=== PATIENT | male | born 1940 | race Caucasian/White ===

== ENCOUNTER 2020-09-20 21:33 | Inpatient (IN) | payer MEDICARE, OTHER ==
[~2020-09-20] VITALS: Ht 177.8 cm; Wt 79.4 kg
[~2020-09-20 21:33] MED LIST: ANTIVERT25 MG PO; ASPIRIN EC325 MG PO; BENADRYL25 MG; FOLBIC RF TABL1 EACH PO; GARLIC2000 MG PO; LEVOTHYROXINE50 MCG; LIPITOR10 MG PO; LOVASTATIN40 MG; NEXIUM20 MG PO
[2020-09-20] MEDS ORDERED: OMEPRAZOLE20 MG PO (21:56)
[2020-09-20] MEDS ORDERED: CILOSTAZOL100 MG PO (21:56)
--- NOTE | 2020-09-21 03:30 | NUR ---
IN TO GET ADMISSION VITALS, CHUX PLACED, ORAL SWABS ON BEDSIDE TABLE, NO FURTHER NEEDS AT THIS TIME
--- NOTE | 2020-09-21 04:00 | NUR ---
ASSESSMENT COMPLETED. GCS 15, A&O X4. PT STEADY ON FEET, SBA FOR TUBES. NG TUBE ON GRAVITY UNTIL PLACEMENT CONFIRMED. LUNGS CLEAR. HEART TONE HAS MURMUR. ABD SOFT, TENDER, PT STATES NORMAL, BOWEL TONES ACTIVE. PT HAS A UROSTOMY BAG ON LEFT ABDOMEN THAT HE EMPTIES HIMSELF. OUTPUT IS YELLOW AND CLEAR. PT DOES NOT USE HIS URETHRA FOR URINATION DUE TO UROSTOMY BAG PLACEMENT.CMS INTACT. IV WNL, CDI, FLUSHED WELL. IV FLUIDS INFUSING PER ORDER. EDUCATION PROVIDED CONCERNING SAFETY, CALL LIGHT, HOB ELEVATION DUE TO NG TUBE, IV AND NG LINES AND AMBULATION. NO OTHER NEEDS AT THIS TIME. CALL LIGHT IN REACH.
--- NOTE | 2020-09-21 05:23 | NUR ---
RECEIVED RESULTS OF NG TUBE PLACEMENT XRAY. ADVANCED TUBE 16CM. XRAY NOTIFIED FOR A 2ND IMAGE TO CONFIRM NEW PLACEMENT.
--- NOTE | 2020-09-21 06:25 | NUR ---
VS AND I&O COMPLETED. PT DENIES NAUSEA AND PAIN. NG PLACED ON LOW INTERMITENT SUCTION. NO OTHER NEEDS AT THIS TIME. CALL LIGHT IN REACH.
--- NOTE | 2020-09-21 07:59 | NUR ---
PT WAS RESTING SOUNDLY AT SHIFT EXCHANGE LEFT UNDISTURBED. AWAKENS NOW TO VOICE DENIES ABDOMINAL PAIN BUT REPORTS THROAT IRRITATION DUE TO NG TUBE.
--- NOTE | 2020-09-21 09:04 | NUR ---
DR DIAS IN TO SEE THIS PT DISCUSSES POSSIBLE DIAGNOSTICS AND PLAN GOING FORWARD, ALL QUESTIONS ANSWERED
--- NOTE | 2020-09-21 10:31 | NUR ---
SBA PATIENT UP TO BATHROOM, NG IN PLACE. VITALS AND I&OS CHARTED, WARM BLANKET PROVIDED. NO OTHER NEEDS AT THIS TIME
--- NOTE | 2020-09-21 11:39 | CONS ---
[facility] [address] [place], [place] [address] Signed DATE OF CONSULTATION: 09/21/2020 CHIEF COMPLAINT: Nausea and vomiting for three days. HISTORY OF PRESENT ILLNESS: Tiny is a 80-year-old gentleman who originally developed a bladder tumor. He had transurethral resection of the bladder tumor with Dr. Trejo here in [place], [place]. He went through this along with his chemotherapy. 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 That caused atrophy of the right kidney. He later had his right kidney taken out through a right abdominal wall incision around 1999 up in [place], [place]. That urologist has since gone back to [place]. He now follows along with Dr. Maurice Rutledge. From all the chemo and radiation, his bladder got to where it would not stretch when he was going the bathroom all the time. He then went for a periumbilical lower midline incision in [address] Rutledge and had his prostate and bladder removed in the left lower quadrant, the ileal conduit created. He said he has done very well with the ileal conduit. He says once in a while the anastomosis of the ileum acts up and he gets to where he has abdominal distention with nausea and vomiting. He realized over the last three days that he was in this situation and would not resolve, he came to emergency room for evaluation. In the emergency room, he is not systemically ill or toxic. His white count was little elevated and the rest of his labs were fine. He ended up with a CT scan of abdomen and pelvis and of course, he has mildly distended small bowel down to that staple line and seems to be decompressed beyond the staple line in that ileum. It is near his ileal conduit in the left lower quadrant. Also, he may have some level of pulmonary cystoceles or pneumatoceles and/or some COPD on the CT scan. He may also have a right hydrocele. I have been asked to admit him as a general surgeon on-call. We had planned to place an NG tube. In the meantime, he had vomited quite a bit out in the parking lot and once he got down to our med/surg floor, he had an enormous amount of diarrhea and bowel movement and said he felt much better. They then placed the NG tube and he has had almost no clear gastric fluid out of it overnight. He said he feels much better. PAST MEDICAL HISTORY: 1. Possible ulcerative colitis diagnosed around age 76 [address] Green at the [facility], small hiatal hernia with acid reflux. 2. Bladder cancer. 3. Hypothyroidism. 4. Hemorrhoids. 5. Diverticulosis. 6. Peripheral arterial disease. 7. Recurrent resolving small-bowel obstructions. PAST SURGICAL HISTORY: Electronically Signed By: ETHAN URIBE MD 09/21/20 1139 PATIENT NAME: TINY MINOR CONSULTATION DATE OF : 44 REPORT #: [id number] PHYSICIAN: ETHAN URIBE MD PCP: ANG QUAN MD REPORT IS CONFIDENTIAL AND NOT TO BE RELEASED WITHOUT AUTHORIZATION [facility] [address] [place], [place] [address] Signed Transurethral resection of his bladder tumor with Dr. Trejo in [place], [place], followed by chemotherapy and radiation therapy. He then had a right nephrectomy in [place] around 1999 and then in 2005, Dr. Rutledge did his prostatectomy and cystectomy with a left lower quadrant ileal conduit. He also talked about his left mastoid surgery. He mentioned upper and lower endoscopy with Dr. Green at age 76 at the [facility]. He was told he had a hiatal hernia along with some diverticulosis and hemorrhoids. He later found out from his primary care provider, there was concern for ulcerative colitis. He said the medicine was too expensive, so he never took it. He was having a lot of diarrhea, so he started taking Benefiber and that markedly improved. He went back a year or two later with Dr. De Paz and had another colonoscopy and again diverticulosis with some hemorrhoids, but no evidence of any ulcerative colitis. SOCIAL HISTORY: He quit smoking. He does not drink. He is to [place] at [phone]. He has 2 children and [address] Ang Quan is his primary care provider, Dr. Maurice Rutledge is his urologist, although he is connected to the [facility]. He does prefer the [facility] in [place], [place]. He still drives. He is retired from here in [place], [place]. FAMILY HISTORY: His mother at age 90. Sister at age 79 from her colon cancer. REVIEW OF SYSTEMS: He had 10 systems reviewed and he is actually a very good historian and gave me all the detail in the above. ALLERGIES: Sulfa. MEDICATIONS: Levothyroxine, aspirin, Lipitor, Prilosec, Cilostazol and Benefiber. PHYSICAL EXAMINATION: VITAL SIGNS: Blood pressure is 144/75, heart rate 78, respirations 16, temperature is 97.5. He is 98% on room air. He is 5 feet 10 inches and 78 kg. GENERAL: Tiny is a 80-year-old gentleman lying supine in his hospital bed. He is alert, awake and interactive. He is an excellent historian. He has just very minimal 20 mL or so of clear gastric fluid in the canister with the NG tube in place. LUNGS: Clear to auscultation bilaterally. HEART: Regular rate and rhythm without murmurs. ABDOMEN: Mildly protuberant at his baseline according to him, it is quite soft, and nontender. There is no tympany. There is no dullness to percussion. He has an ileal conduit with his ostomy bag in the left lower quadrant. Electronically Signed By: ETHAN URIBE MD 09/21/20 1139 PATIENT NAME: TINY MINOR CONSULTATION DATE OF : 44 REPORT #: [id number] PHYSICIAN: ETHAN URIBE MD PCP: ANG QUAN MD REPORT IS CONFIDENTIAL AND NOT TO BE RELEASED WITHOUT AUTHORIZATION [facility] [address] [place], [place] [address] Signed RECTAL: Not performed. LABORATORY DATA: His white blood count is 13.4, hemoglobin 15, neutrophils 75, his BUN 16, creatinine 1.48. His COVID was negative. His liver function tests are negative. His albumin is 4.9. RADIOGRAPHIC STUDIES: Chest x-ray shows that the NG tube is now in the stomach. No other major issues on the chest x-ray. A CT scan of the abdomen and pelvis is reviewed and he probably has bilateral lower pulmonary cystoceles versus pneumatoceles or COPD. He has mildly dilated small bowel down to the staple line in the left lower quadrant and then it seems to be decompressed. He may have right hydrocele as well. ASSESSMENT/PLAN: Tiny is a 80-year-old gentleman who presents with what appears to be a mild partial small bowel obstruction that is probably now resolved. I explained to Tiny I think we will wait today on IV fluids and with his NG tube in place and we will look for a small bowel follow-through probably tomorrow morning and if it is negative, we will be able to discharge him afterwards. He said he is supposed to follow up with Dr. Rutledge tomorrow appointment and he was wondering about followup colonoscopy because of this presumed diagnosis of ulcerative colitis plus his sister had of colon cancer at age 79, that is something he would have to talk to his primary care provider about. He was wondering if he should see another center rep. Of course, Dr. Green has moved over to the [facility]. He thought if he went to the [facility], he might consider seeing one of the other gastroenterologists such as Dr. Huddleston or Dr. Ordaz. Again, that will be up to him and his primary care provider if he would like me to help here in town, I could certainly do his colonoscopy, but I do not medically treat ulcerative colitis. He has expressed understanding and agrees to above plan. Ethan Uribe MD ALB/MODL /[id number] cc: MD Ang Delarosa MD Electronically Signed By: ETHAN URIBE MD 09/21/20 1139 PATIENT NAME: TINY MINOR CONSULTATION DATE OF : 44 REPORT #: [id number] PHYSICIAN: ETHAN URIBE MD PCP: ANG QUAN MD REPORT IS CONFIDENTIAL AND NOT TO BE RELEASED WITHOUT AUTHORIZATION [facility] [address] [place], [place] [address] Signed Copies: ETHAN URIBE MD, JONATHAN MD ~ Electronically Signed By: ETHAN URIBE MD 09/21/20 1139 PATIENT NAME: TINY MINOR CONSULTATION DATE OF : 44 REPORT #: [id number] PHYSICIAN: ETHAN URIBE MD PCP: ANG QUAN MD REPORT IS CONFIDENTIAL AND NOT TO BE RELEASED WITHOUT AUTHORIZATION
--- NOTE | 2020-09-21 12:09 | NUR ---
PT ENCOURAGED TO AMBULATE THIS SHIFT AND SPEND TIME IN THE CHAIR, EDUCATION PROVIDED. PT VERBALIZES UNDERSTANDING. NO C/O ABDOMINAL PAIN THIS SHIFT CEPACOL PROVIDED FOR THROAT IRRITATION.
--- NOTE | 2020-09-21 13:50 | NUR ---
PT CONTINUES TO DO WELL THIS SHIFT WITH NO C/O ABDOMINAL PAIN NO NAUSEA. AGREES HE WILL WALK THE HALLS LATER. ORAL CARE ITEMS PROVIDED
--- NOTE | 2020-09-21 16:31 | NUR ---
PT UP AMBULATING THE BARRETO SEVERAL LAPS BRISK PACE WELL TOLERATED. CONTINUES WITHOUT C/O PAIN OR NAUSEA
--- NOTE | 2020-09-21 18:22 | NUR ---
PATIENT FELL ASLEEP READING IN BED, WOKE TO VOICE. VITALS AND I&OS CHARTED. NG IN PLACE. URINE BAG EMPTIED. PATIENT HAS BEEN AMBULATING HALLS THIS AFTERNOON, TOLERATED WELL. CALL LIGHT AND PERSONAL ITEMS CLOSE BY
--- NOTE | 2020-09-21 19:00 | NUR ---
SHIFT REPORT FROM NURSE KANG. PT LAYING IN BED WATCHING TV. NG TO LIS; CLEAR FLUID IN TUBING. NEW IVF HUNG. PT DENIES FURTHER NEEDS AT THIS TIME. CALL LIGHT WITHIN REACH.
--- NOTE | 2020-09-21 20:30 | NUR ---
ROUNDED CHARGE. pt RESTING IN BED, NGT TO LOW INT SUCTION. PRIMARY RN IN ROOM. VSS. NO CONCERNS AT THIS TIME.
--- NOTE | 2020-09-21 20:45 | NUR ---
IN ROOM FOR ASSESSMENT. PT IS TALKATIVE AND ALERT. NG TO LIS, UROSTOMY BAG EMPTIED.CMS INTACT. BOWEL TONES ACTIVE. PT REPORTS 6/10 PAIN IN FACE/HEAD FROM NG TUBE. 1MG IV DILAUDID ADMINISTERED ALONG WITH CEPACOL LOZENGE. NO FURTHER NEEDS AT THIS TIME. CALL LIGHT WITHIN REACH.
--- NOTE | 2020-09-21 21:14 | NUR ---
CALL LIGHT ANSWERED. NGT DICONNECTED FROM TUBING, RECONNECTED AT THIS TIME TO LOW INT SUCTION. YELLOW/GREEN DRAINAGE IN TUBING. CALL LIGHT IN REACH. LIGHTS OFF IN ROOM.
--- NOTE | 2020-09-22 02:10 | NUR ---
IN ROOM FOR 0200 VITALS. PT IS AWAKE AND VIEWING HIS SAL. PT REPORTS THAT HE FEELS HE WOKE UP D/T PAIN. PT REPORTS 5/10 PAIN IN L EYE/FACE FROM NG TUBE. PT REQUESTS DILAUDID. 1MG IV DILAUDID ADMINISTERED AT THIS TIME. ASSESSMENT PERFORMED. BOWEL TONES HYPOACTIVE, NG TUBE TO WALL LIS. PT REPORTS NO FLATULENCE. CEPACOL LOZENGE PROVIDED FOR COMFORT. CALL LIGHT WITHIN REACH.
--- NOTE | 2020-09-22 04:06 | NUR ---
CHECKED ON PT. PT APPEARS TO BE SLEEPING; LIGHTS OUT IN ROOM. CALL LIGHT WITHIN REACH.
--- NOTE | 2020-09-22 06:49 | NUR ---
IN ROOM FOR MORNING VITALS. PT IS AWAKE AND ALERT. VSS. PT REPORTS 6/10 PAIN. REQUESTS PRN PAIN MEDS AND CEPACOL LOZENGE.
--- NOTE | 2020-09-22 07:37 | NUR ---
PT RESTING EYES CLOSED AT TIME OF SHIFT EXCHANGE. AWAKENS TO VOICE. RESTING IN BED DENIES NEEDS. DENIES ABDOMINAL PAIN. ORAL CARE ITEMS PROVIDED
--- NOTE | 2020-09-22 09:44 | NUR ---
PT WENT TO DIAGNOSTICS [facility] FOR SMALL BOWEL FOLLOW THROUGH, HE CONTINUES THERE AT THIS TIME. STUDENT RN ACCOMPANIED HIS ALONG WITH XRAY STAFF
--- NOTE | 2020-09-22 11:33 | NUR ---
PT BACK TO ROOM FROM [facility]. STATES HE HAD A URGE TO PASS STOOL BUT "I KNOW THERES NOTHING IN THERE" DISCUSSED WITH PT THE NEED TO RESPOND TO THE URGE TO PASS STOOL AND THAT HE LIKELY HAS STOOL THAT NEEDS TO PASS...THAT'S WHAT AN OBSTRUCTION IS. ENCOURAGED PT TO SIT ON THE TOILET TO SEE IF THE URGE CAME BACK AND HE COULD PASS STOOL. HE DECLINES AND RETURNS TO RESTING IN BED. ENCOURAGED HIM TO CALL IF HE FEELS THE NEED TO TOILET.
--- NOTE | 2020-09-22 13:10 | NUR ---
PT RESTING IN BED USING ELECTRONIC DEVICE MG RIDER INFUSING. REPORTS HE IS ANXIOUS TO HEAR FROM DR DIAS HOPING TO HAVE NG TUBE DC'D
--- NOTE | 2020-09-22 13:30 | NUR ---
NOTIFIED DR DIAS OF NEG SMALL BOWEL FOLLOW THROUGH. HE SAYS PULL THE NG TUBE AND ADVANCE TO FULL LIQUIDS. FOOD ITEMS ORDERED. PT C/O IV SITE IRRITATION. MG IS COMPLETE IV STOPPED AT THIS TIME.
--- NOTE | 2020-09-22 14:23 | NUR ---
PT PRESENT IN THE ROOM. PT TOLERATES MASHED POTATOES AND GRAVY ALONG WITH 400 MLS OF CLEAR FLUID. NO C/O NAUSEA OR ABDOMINAL PAIN. CONTINUES SIPPING ON H20.
--- NOTE | 2020-09-22 15:21 | NUR ---
THIS RN INTO ROOM FOR CASE MANAGEMENT ASSESSMENT. PATIENT STANDING BY CHAIR TALKING WITH . PATIENT APPEARS TO MOVE EASILY ABOUT THE ROOM AND STATES HE WOULD LIKE TO GO HOME TODAY. ASSESSMENT COMPLETE, PLEASE SEE OTHER DOCUMENTATION. NO FURTHER NEEDS FROM PATIENT AND HIS AT THIS TIME. PATIENT ASKED RN TO DISCUSS DISCHARGE WITH STAFF, DISCUSSED WITH FELIX CONCRETE BUCKET UNLOADER.
[2020-09-22] MEDS ORDERED: LEVOTHYROXINE88 MCG PO (16:19)
--- NOTE | 2020-09-22 16:26 | NUR ---
DR DIAS WRITES DC ORDERS
== END 2020-09-22 16:35 | disposition home or self-care (01) | DRG 390 ==
LOC: ED 21:33 → MS 21:34 → ED 09-21 01:30 → MS 09-21 09:05
PROVIDERS: ADMIT Colon & Rectal Surgery; ATTEND Colon & Rectal Surgery
DX: K56.600 Partial intestinal obstruction, unspecified as to cause (principal); Z20.822 Contact with and (suspected) exposure to COVID-19; E83.42 Hypomagnesemia; E03.9 Hypothyroidism, unspecified; K44.9 Diaphragmatic hernia without obstruction or gangrene; K21.9 Gastro-esophageal reflux disease without esophagitis; K64.9 Unspecified hemorrhoids; K57.90 Diverticulosis of intestine, part unspecified, without perforation or abscess without bleeding; I73.9 Peripheral vascular disease, unspecified; Z87.891 Personal history of nicotine dependence; Z88.2 Allergy status to sulfonamides; Z79.82 Long term (current) use of aspirin; Z79.899 Other long term (current) drug therapy; Z85.51 Personal history of malignant neoplasm of bladder
CPT/HCPCS: 36415; 43752; 71045; 74176; 74250; 80048; 80053; 83690; 83735; 84100; 85025; 99285-25; C9113; C9803; J1170; J1650; J2405; J3475; J7121; U0003

== ENCOUNTER 2022-03-29 07:22 | Day surgery (SDC) | payer MEDICARE, OTHER ==
[~2022-03-29] VITALS: Ht 177.8 cm; Wt 77.5 kg
[~2022-03-29 07:22] MED LIST changes: +CILOSTAZOL100 MG PO; +LEVOTHYROXINE88 MCG PO; +OMEPRAZOLE20 MG PO
[2022-03-29] MEDS ORDERED: CETIRIZINE HCL10 MG PO (07:50)
[2022-03-29] MEDS ORDERED: VITAMIN D325 MC2 PO (07:51)
[2022-03-29] MEDS ORDERED: TART CHERRY E1000 MG PO (07:51)
--- NOTE | 2022-03-29 08:35 | NUR ---
VISITED WITH PT PRIOR TO PROCEDURE. WAS IN THE ROOM WITH PT. PT EXPRESSED HOPE THAT THIS MIGHT BE THE FINAL COLONOSCOPY DUE TO AGE. PRAYED WITH PT AND .
--- NOTE | 2022-03-29 09:24 | NUR ---
03/29/22 0924 Pita Mensah 0921- PT ARRIVES TO PACU REACTIVE TO VOICE. PT FALLS INSTANTLY BACK TO SLEEP WHEN NOT BEING TALKED TO. RESP EVEN AND UNLABORED. OXYGEN SAT HIGH 90'S TO 100% ON 2L VIA CO2 NC.
--- NOTE | 2022-03-29 20:01 | OR ---
[facility] [address] [place], [place] [address] Signed DATE OF OPERATION: 03/29/2022 SURGEON: Eli Munson MD PREOPERATIVE DIAGNOSES: 1. History of "colitis," persistent diarrhea. 2. Colonoscopy in 2004, normal grossly except for diverticulosis. POSTOPERATIVE DIAGNOSES: 1. Sigmoid diverticulosis. 2. Mild inflammatory change of colon. PROCEDURES: Total colonoscopy to cecum with biopsies, cecum, transverse, left sigmoid and rectal areas. ANESTHESIA: Intravenous sedation with fentanyl 100 mcg and Versed 5 mg. INDICATION: This 82-year-old white man is a patient of BARRY Smith. He has a history of "ulcerative colitis" as diagnosed by model and mold maker Dr. Green in [place] in 2015. He really was not treated to my knowledge with any specific therapy for this. He does have persistent diarrhea. He last underwent colonoscopy by me in 2015. Notably, he has undergone cystectomy and right nephrectomy for malignancy in 2006 and maintains the urostomy bag in the left abdomen. He was prescribed medication for "ulcerative colitis in 2016, by Dr. Green, the model and mold maker, but did not wish to pay the co-pay and did not really take any medication for this." I suspect the medication was mesalamine. He continues to note cramping of the abdomen from [id number], diarrhea without associated bleeding. He was admitted to undergo colonoscopy to better characterize the problem, understand the risks of bleeding, infection, and perforation. FINDINGS: The prep was excellent. Complete colonoscopy was undertaken. The cecum without question. He had diverticular change of the sigmoid. There was no sign of stricture though fibrotic changes were noted to some degree in the sigmoid. Mucosa itself had a mild granular appearance suggestive though not diagnostic of colitis. Biopsies were obtained to assess this. He had no polyps and certainly no cancer. PROCEDURE IN DETAIL: Electronically Signed By: ELI MUNSON MD 03/29/222000 PATIENT NAME: TINY MINOR OPERATIVE REPORT DATE OF : 44 REPORT #: [id number] PHYSICIAN: ELI MUNSON MD PCP: BO [place] PAC REPORT IS CONFIDENTIAL AND NOT TO BE RELEASED WITHOUT AUTHORIZATION [facility] [address] [place], [place] [address] Signed The patient was brought to the endoscopy suite and placed in lateral decubitus position, given intravenous sedation to the point of slurred speech and nystagmus. Digital rectal examination was normal. An Olympus video colonoscope was passed in the rectum and manipulated into the sigmoid where dense diverticular changes were noted. Various manipulations required to past the sigmoid, ultimately to the left colon and ultimately to the cecum. The ileocecal valve and appendiceal orifice were normal. Biopsies were taken of the cecum. The scope was withdrawn. Examination undertaken. There appeared to be mild edematous appearing mucosa. Fine granular changes but no clear evidence of colitis proper. Biopsies were taken of the transverse, left and sigmoid areas as well as the rectum. The scope was removed and the patient taken to recovery room in good condition. CONCLUDING DIAGNOSIS: The patient may have occult colitis of some type; pathology reports are pending. PLAN: Recommend high-fiber diet and fiber supplement, Citrucel one scoop p.o. daily. We will see him back in the office in six weeks or so and assess his progress and review pathology reports. MD CONRADO Quezada/MODL /[id number] cc: BARRY Smith Copies: ~ Electronically Signed By: ELI MUNSON MD 03/29/22 2001 PATIENT NAME: TINY MINOR OPERATIVE REPORT DATE OF : 44 REPORT #: [id number] PHYSICIAN: ELI MUNSON MD PCP: BO [place] PAC REPORT IS CONFIDENTIAL AND NOT TO BE RELEASED WITHOUT AUTHORIZATION
--- NOTE | 2022-04-05 09:38 | PATH ---
[facility] [address] [facility] [place], [place] [address] Signed SPECIMEN(S): A CECUM BIOPSY SPECIMEN(S): B TRANSVERSE COLON BIOPSY SPECIMEN(S): C DESCENDING/LEFT COLON BIOPSY SPECIMEN(S): D SIGMOID COLON BIOPSY SPECIMEN(S): E RECTUM SPECIMEN SOURCE: A. CECUM BIOPSY B. TRANSVERSE COLON BIOPSY C. DESCENDING/LEFT COLON BIOPSY D. SIGMOID COLON BIOPSY E. RECTUM CLINICAL HISTORY: 2016 diverticulitis, ulcerative colitis. Post: Mild colitis and diverticulosis. Colonoscopy. FINAL PATHOLOGIC DIAGNOSIS: A. Colon, cecum, biopsy: - Mild chronic active colitis consistent with treated ulcerative colitis. - No evidence of dysplasia. B. Colon, transverse, biopsy: - Mild chronic active colitis consistent with treated ulcerative colitis. - No evidence of dysplasia. C. Colon, descending/left, biopsy: - Mild chronic active colitis consistent with treated ulcerative colitis. - No evidence of dysplasia. D. Colon, sigmoid, biopsy: - Mild chronic active colitis consistent with treated ulcerative colitis. - No evidence of dysplasia. E. Rectum, biopsy: - No significant histopathologic alterations. COMMENT: Regarding specimens A, B, C and D, the biopsies show an architecturally distorted colonic mucosa. There is a lymphoplasmacytosis involving the lamina propria. Rare neutrophils are seen scattered about in the lamina propria or in the glands. There are no crypt abscesses and no ulcers. There is no evidence of dysplasia in any of the biopsies. The biopsy from the rectum shows the most distortion and has the least amount of chronic inflammation in the lamina propria. PATIENT NAME: TINY MINOR PATHOLOGY DATE OF : 44 REPORT #: [id number] PHYSICIAN: SHERRI SOUZA PCP: BO [place] PAC REPORT IS CONFIDENTIAL AND NOT TO BE RELEASED WITHOUT AUTHORIZATION [facility] [address] [place], [place] [address] Signed Regarding specimen E, the sections from the specimen are architecturally normal without crypt distortion. There is no acute or chronic inflammation. There is no evidence of microscopic colitis. There are no abnormal organisms or infiltrates. There is no evidence of polyps or neoplasia. TWK:caw:[id number] MICROSCOPIC EXAMINATION: Histologic sections of all submitted blocks are examined by light microscopy. These findings, together with the gross examination, support the pathologic diagnosis. GROSS DESCRIPTION: Five specimens are received in five containers, labeled "RK." A. The specimen, labeled "RK, cecum biopsy," is received in formalin and consists of three lewis soft tissue fragments that measure 0.2-0.3 cm in greatest dimension. The specimen is entirely submitted in cassette (A1). B. The specimen, labeled "RK, transverse colon biopsy," is received in formalin and consists of two lewis soft tissue fragments that measure 0.1 cm in greatest dimension. The specimen is entirely submitted in cassette (B1). C. The specimen, labeled "RK, descending colon biopsy," is received in formalin and consists of three lewis soft tissue fragments that measure 0.1-0.2 cm in greatest dimension. The specimen is entirely submitted in cassette (C1). D. The specimen, labeled "RK, sigmoid colon biopsy," is received in formalin and consists of four lewis soft tissue fragments that measure 0.2 cm in greatest dimension. The specimen is entirely submitted in cassette (D1). E. The specimen, labeled "RK, rectum biopsy," is received in formalin and consists of two lewis soft tissue fragments that measure 0.1-0.2 cm in greatest dimension. The specimen is entirely submitted in cassette (E1). JS (under the direct supervision of a pathologist) The Gross Description was prepared using a voice recognition system. The report was reviewed for accuracy; however, sound-alike word errors, addition and/or deletions may occur. If there is any question about this report, please contact Client Services. PERFORMING LABORATORY: PATIENT NAME: TINY MINOR PATHOLOGY DATE OF : 44 REPORT #: [id number] PHYSICIAN: SHERRI SOUZA PCP: BO [place] PAC REPORT IS CONFIDENTIAL AND NOT TO BE RELEASED WITHOUT AUTHORIZATION [facility] [address] [place], [place] [address] Signed The technical component was performed by [facility], [address] [place] [id number] (CLIA# [id number]). Professional interpretation was performed by [facility], [facility], [address] [place] [id number] (CLIA#: [id number]). Diagnostician: Bairon Millan MD Pathologist Electronically Signed 04/05/2022 Copies: ~ PATIENT NAME: TINY MINOR PATHOLOGY DATE OF : 44 REPORT #: [id number] PHYSICIAN: SHERRI PATHOLOGY PCP: BO [place] PAC REPORT IS CONFIDENTIAL AND NOT TO BE RELEASED WITHOUT AUTHORIZATION
== END 2022-03-29 10:11 | disposition home or self-care (01) ==
LOC: OPS 07:22 → DS 07:22 → OPS 08:30 → DS 14:00
PROVIDERS: ATTEND Surgery
PROC: 0DBL8ZX Excision of Transverse Colon, Via Natural or Artificial Opening Endoscopic, Diagnostic (ICD-10-PCS; 2022-03-29)
PROC: 0DBN8ZX Excision of Sigmoid Colon, Via Natural or Artificial Opening Endoscopic, Diagnostic (ICD-10-PCS; 2022-03-29)
PROC: 0DBP8ZX Excision of Rectum, Via Natural or Artificial Opening Endoscopic, Diagnostic (ICD-10-PCS; 2022-03-29)
PROC: 0DBH8ZX Excision of Cecum, Via Natural or Artificial Opening Endoscopic, Diagnostic (ICD-10-PCS; principal; 2022-03-29 08:30)
DX: K52.9 Noninfective gastroenteritis and colitis, unspecified (principal); K57.30 Diverticulosis of large intestine without perforation or abscess without bleeding; K21.9 Gastro-esophageal reflux disease without esophagitis; E03.9 Hypothyroidism, unspecified; E78.00 Pure hypercholesterolemia, unspecified; Z90.5 Acquired absence of kidney; Z86.718 Personal history of other venous thrombosis and embolism; Z79.02 Long term (current) use of antithrombotics/antiplatelets; Z85.51 Personal history of malignant neoplasm of bladder; Z88.2 Allergy status to sulfonamides
CPT/HCPCS: 88305; 99153; G0500; J2250; J3010; J7121

== ENCOUNTER 2022-06-05 14:42 | Emergency (ER) | payer OTHER, MEDICARE ==
[~2022-06-05] VITALS: Ht 177.8 cm; Wt 77.1 kg
[~2022-06-05 14:42] MED LIST changes: +CETIRIZINE HCL10 MG PO; +TART CHERRY E1000 MG PO; +VITAMIN D325 MC2 PO
[2022-06-05] MEDS ORDERED: PLAVIX75 MG PO (15:48)
== END 2022-06-05 18:04 | disposition home or self-care (01) ==
LOC: ED 14:42
DX: I63.9 Cerebral infarction, unspecified (principal); E03.9 Hypothyroidism, unspecified; K21.9 Gastro-esophageal reflux disease without esophagitis; Z87.891 Personal history of nicotine dependence; Z88.0 Allergy status to penicillin; Z88.2 Allergy status to sulfonamides; Z79.899 Other long term (current) drug therapy; Z79.82 Long term (current) use of aspirin
CPT/HCPCS: 36415; 70450; 70496; 70498; 80053; 85025; 96374; 99284-25; J2405; Q3014; Q9967

== ENCOUNTER 2024-09-24 08:50 | Day surgery (SDC) | payer MEDICARE, OTHER ==
[2024-09-17 10:23] VITALS: BP 126/75
[~2024-09-24] VITALS: Ht 177.8 cm; Wt 70.5 kg
[~2024-09-24 08:50] MED LIST changes: +BAYER CHEWABLE81 MG PO; +CEFAZOLIN SODIUM 2 GM/20 ML SYR IV SCH; +COLCRYS0.6 MG PO; +IBLOOD GLUCOSE TEST STRIP 1 EA TEST VI PRN; +LACTATED RINGER'S 1,000 ML IV SCH; -LEVOTHYROXINE88 MCG PO; +LIDOCAINE HCL 1% 5 ML SDV INJ ONE; -LIPITOR10 MG PO; +LIPITOR40 MG PO; +NORVASC2.5 MG PO; +PLAVIX75 MG PO; +PREDNISONE20 MG PO; +SYNTHROID100 MCG PO
[2024-09-24] MEDS ORDERED: ondansetron HCL 4 MG/2 ML VIAL IV PRN ×2 (09:00→13:15)
[2024-09-24] MEDS ORDERED: OXYCODONE/APAP 5/325 TAB PO PRN (09:00)
[2024-09-24] MEDS ORDERED: HYDROmorphone HCL 1 MG/ML SYR IV PRN ×2 (09:00→13:15)
[2024-09-24 09:17] VITALS: BP 151/65
[2024-09-24] MEDS ORDERED: BUPIVACAINE HCL 0.25% 50 ML MDV ONE (11:30)
[2024-09-24] MEDS ORDERED: ACETAMINOPHEN 1,000 MG/100 ML VIAL ONE ×2 (11:46→11:47)
[2024-09-24] MEDS ORDERED: fentaNYL citrate 100 MCG/2 ML VIAL ONE ×2 (11:46→12:49)
[2024-09-24] MEDS ORDERED: propofoL 200 MG/20 ML VIAL ONE (11:46)
[2024-09-24] MEDS ORDERED: LIDOCAINE HCL 2% 5 ML SDV ONE (11:46)
[2024-09-24] MEDS ORDERED: ondansetron HCL 4 MG/2 ML VIAL ONE (11:47)
[2024-09-24] MEDS ORDERED: ePHEDrine sulfate 50 MG/ML AMP ONE (12:01)
[2024-09-24] MEDS ORDERED: LACTATED RINGER'S 1,000 ML IV ONE (13:00)
[2024-09-24] MEDS ORDERED: fentaNYL citrate 50 MCG/ML SDV IV PRN (13:15)
[2024-09-24] MEDS ORDERED: NALOXONE HCL 0.4 MG SYR IV PRN (13:15)
[2024-09-24] MEDS ORDERED: PROCHLORPERAZINE EDISYLATE 10 MG/2 ML VIAL IV PRN (13:15)
[2024-09-24] MEDS ORDERED: IBLOOD GLUCOSE TEST STRIP 1 EA TEST VI PRN (13:15)
[2024-09-24] MEDS ORDERED: droPERidol 5 MG/2 ML VIAL IV PRN (13:15)
[2024-09-24] MEDS ORDERED: SEVOFLURANE 250 ML BTL INH ONE (13:54)
--- NOTE | 2024-09-24 13:56 | NUR ---
09/24/24 1356 Katya Enriquez PATIENT OPENS HIS EYES. HE DENIES PAIN. HOB IS ELEVATED.
[2024-09-24 14:18] VITALS: BP 142/82
--- NOTE | 2024-09-24 14:22 | NUR ---
1412- PT ARRIVES FROM PACU. VITAL SIGNS OBTAINED. BEDSIDE REPORT RECIEVED. PT DENIES PAIN BUT SAYS THAT HE FEELS "PUNY". EMESIS BAG AND ALCOHOL WIPE PROVIDED. SURGICAL SITE SHOWS SOME PINK TINGED FLUID ON THE FLUFF. ATHLETIC STRAP IN PLACE. APPLESAUCE AND WATER PROVIDED PER PT REQUEST. PT BED IS IN THE LOWEST AND LOCKED POSITION. CALL LIGHT IN REACH. DISCHARGE CRITERIA DISCUSSED AND PT IS UNDERSTANDING.
[2024-09-24 15:31] VITALS: BP 110/72
--- NOTE | 2024-09-24 16:18 | NUR ---
1330 PT SITTING UP IN BED. PT REPORTS HIS STOMACHE IS NOT FEELING WELL BUT "NOT SURE IF HE IS NAUSEOUS". PT DECLINES ANY NAUSEA MEDS, PT STATES HE FEELS THIS WAY WHEN HE IS HUNGRY. HE REPORTS READINESS TO GO HOME. HIS DAUGHTER IS AT BEDSIDE. DRESSING CLEAN AND DRY. ATHLETIC SUPPORT AN FLUFFS IN PLACE. DISCHARGE INSTRUCTIONS GIVEN TO PT AND DAUGHTER BOTH VOICED UNDERSTANDING.
--- NOTE | 2024-09-26 10:28 | PATH ---
[facility] [address] [facility] [place], [place] [address] Signed SPECIMEN(S): A R HYDROCELE SAC SPECIMEN SOURCE: A. R HYDROCELE SAC CLINICAL HISTORY: Right hydrocele FINAL PATHOLOGIC DIAGNOSIS: Right hydrocele sac: - Consistent with hydrocele BRP MICROSCOPIC EXAMINATION: Histologic sections of all submitted blocks are examined by light microscopy. These findings, together with the gross examination, support the pathologic diagnosis. GROSS DESCRIPTION: The specimen, labeled and designated "Patrick, right hydrocele sac," is received in formalin and consists of two slightly fragmented portions of pink-lewis soft/membranous tissue (0.8 x 0.4 x 0.3 cm, and 1.4 x 0.8 x 0.4 cm). The largest portion is inked blue and quadrisected to reveal pink-white soft cut surfaces. The specimen is submitted entirely in cassette (A1). VB (under the direct supervision of a pathologist) The Gross Description was prepared using a voice recognition system. The report was reviewed for accuracy; however, sound-alike word errors, addition and/or deletions may occur. If there is any question about this report, please contact Client Services. ADDITIONAL NOTES: Immunohistochemical and/or in situ hybridization studies if performed in this case included appropriate positive controls that reacted as expected. This test was developed and its performance characteristics determined by [facility]. It has not been cleared or approved by the U.S. Food and Drug Administration. The FDA has determined that such clearance or approval is not necessary. This test is used for clinical purposes. It should not be regarded as investigational or for research. [facility] is certified under the Clinical Laboratory Improvement PATIENT NAME: TINY MINOR PATHOLOGY DATE OF : 44 REPORT #: [id number] PHYSICIAN: SHERRI SOUZA PCP: BO CAROLINA PAC REPORT IS CONFIDENTIAL AND NOT TO BE RELEASED WITHOUT AUTHORIZATION [facility] [address] [place] [address] Signed Amendments of 1988 (CLIA) as qualified to perform high complexity clinical laboratory testing. PERFORMING LABORATORY: Technical component was performed by [facility], [address] [place] [address] (CLIA# [id number]). Professional interpretation was performed by [facility] - [facility], [address] [place] [address] (CLIA#: [id number]). Diagnostician: Genaro Durham MD Pathologist Electronically Signed 09/26/2024 Copies: ~ PATIENT NAME: TINY MINOR PATHOLOGY DATE OF : 44 REPORT #: [id number] PHYSICIAN: SHERRI SOUZA PCP: BO CAR[place]INA PAC REPORT IS CONFIDENTIAL AND NOT TO BE RELEASED WITHOUT AUTHORIZATION
== END 2024-09-24 16:00 | disposition home or self-care (01) ==
LOC: DS 08:50
PROVIDERS: ATTEND Urology
PROC: 0VB60ZZ Excision of Right Tunica Vaginalis, Open Approach (ICD-10-PCS; principal; 2024-09-24 10:50)
DX: N43.3 Hydrocele, unspecified (principal); E78.5 Hyperlipidemia, unspecified; E03.9 Hypothyroidism, unspecified; M10.9 Gout, unspecified; N18.31 Chronic kidney disease, stage 3a; Z88.2 Allergy status to sulfonamides; Z85.51 Personal history of malignant neoplasm of bladder; Z79.899 Other long term (current) drug therapy
CPT/HCPCS: 00920; 88302; J0131; J0690; J2003; J2405; J2704; J3010; J7121